=== PATIENT | male | born 1995 | race Caucasian/White ===

== ENCOUNTER 2018-11-05 14:43 | Emergency (ER) | payer OTHER ==
[2018-11-05] MEDS ORDERED: IBUPROFEN 600 MG TAB PO ONE (15:33)
--- NOTE | 2018-11-05 15:34 | EDPHY ---
General Time Seen by Provider: 11/05/18 15:32 Narrative: CLINICAL IMPRESSION: Left knee laceration ASSESSMENT/PLAN: Patient is a 23-year-old male with no significant medical history who presents to the emergency department with complaint of left patella pain and laceration sustained just prior to arrival. Patient is not toxic appearing, he is in no distress. Physical examination reveals 4 cm laceration transverse across anterior left knee. Left knee x-ray revealed no evidence of patellar fracture or other acute bony abnormality. There is no evidence of deep structure involvement; he was able to flex and extend without difficulty, do not suspect tendinous injury, no evidence of neurovascular compromise, foreign body, or bony involvement. The wound was not contaminated, tetanus status was already up- to-date. The wound was irrigated and then repaired as discussed in the procedure note, the patient tolerated this well. Wound care instructions discussed. Patient will return to the emergency department in 10-14 days for suture removal. Return precautions discussed- he will return for increased pain , signs of infection, fever, vomiting, if the wound opens or for any other concerns. Patient verbalizes understanding and he is in agreement with this plan. DIFFERENTIAL DIAGNOSIS: includes but not limited to laceration of tendon or vascular structure, underlying fracture, laceration with retained FB ED PROCEDURES: Laceration Repair Verbal consent obtained by patient. Risks discussed, including but not limited to infection, pain, retained foreign body, need for additional repair, poor cosmetic result, tendon damage, nerve damage, poor wound healing, vascular damage. Alternatives to repair discussed. [place] protocol used to establish correct patient, procedure, equipment, cryptologic support specialist, and site. Anesthesia obtained by local infiltration. Anesthetized with 1% lidocaine with epinephrine. Laceration location left anterior knee, length for cm, depth 1 cm, Repair type intermediate. Patient was prepped and draped in usual sterile fashion. Hemostasis achieved with direct pressure. Wound explored through full range of motion and entire depth of wound probed and visualized with gloved finger. No suspicion for nerve damage, tendon damage, underlying fracture, vascular damage, foreign body, or contamination. Area was cleansed with Shur-Clens and irrigated with sterile saline as per protocol. No foreign body or material removed. Repair method the deep layer was closed with 3 0 PDS, 3 interrupted sutures. The superficial layer was closed with 4.0 Prolene using tension suture. Five sutures placed. Well aligned, closely approximated. wound was dressed with antibiotic ointment, dressing. Patient tolerated well with no immediate complications. Wound care: Clean and dry x 24 hours, gently clean with soap and water, cover with topical antibiotic ointment/bandage. Suture/Staple removal: 10-14 Days CHIEF COMPLAINT: Laceration HPI: Patient is a 23-year-old male who presents to the emergency department complaining of left knee pain and laceration. Patient reports he was skiing, he went down a rail causing his ski to pop off, his ski subsequently hit him directly onto his left kneecap. He got up in continued skiing, did not experience much pain. Shortly thereafter he noticed a warm sensation in his ski pants, he took down his ski pants and realized that he had a laceration to his knee. Patient has been able to ambulate without difficulty. He was seen by kettle skimmer who wrapped the knee and sent him here for further evaluation. Patient does report pain of his knee cap, denies any other knee pain. He denies any numbness or tingling of the extremity. He denies any other injury or complaint. He is up-to-date on his tetanus status. PAST MEDICAL HISTORY: Denies Pertinent Past Surgical History: Denies Social History: Occasional marijuana, occasional alcohol, denies cigarette smoking REVIEW OF SYSTEMS: All other systems negative Constitutional: No fever, no chills Musculoskeletal: Left patella pain. No deformity, no joint pain Skin: Left knee laceration Neurological: No sensory loss or weakness. PHYSICAL EXAM: General Appearance: Alert, oriented, appropriate for age, cooperative, NAD, well hydrated, non-toxic appearing, VSS, no hypoxia. Neurological: Alert and oriented x 3 Skin: Warm and dry, see musculoskeletal. Upper Extremities: Intact distal pulses, Full range of motion intact, no tenderness, no ecchymosis or edema Lower Extremities: Right lower extremity is unremarkable. Intact distal pulses , No edema, No tenderness, No cyanosis, full range of motion intact, No calf tenderness bilaterally. Left lower extremity: Left thigh compartment is soft and nontender. Anterior mid left patella there is a 4 cm transverse laceration that is full thickness, I am unable to visualize the the patella however it did not violate the retinaculum. There was no evidence of tendinous injury. Patient able to flex and extend under resistance, this did cause discomfort however he had good strength. Patient is tender mid patella. Left lower extremity otherwise unremarkable. MEDICAL DECISION MAKING: Patient was seen independently. Secondary supervising physician at time of evaluation was Dr. Sterling, he did not evaluate this patient. Diagnosis: Left knee laceration. Summary: See assessment and plan for summary of ED visit Clinical lab tests: Not applicable. Independent visualization of images, tracing, or specimens: Not applicable. Decision to obtain medical records or history from someone other than the patient: Not applicable Review / Summarize previous medical records: Yes Disposition: Stable, discharge. - Diagnostics Imaging Results: Imaging Impressions Knee X-Ray 11/05/18 15:33 Impression: Negative left knee radiographs. - History Smoking Status: Current some day smoker - Objective Vital Signs: Initial Vital Signs Temperature (C) 37.2 C 11/05/18 14:47 Heart Rate 85 11/05/18 14:47 Respiratory Rate 16 11/05/18 14:47 Blood Pressure 117/79 11/05/18 14:47 O2 Sat (%) 96 11/05/18 14:47 O2 Delivery Mode Room Air Allergies/Adverse Reactions: amoxicillin Allergy (Verified 11/05/18 14:46) sulfamethoxazole [From Bactrim] Allergy (Verified 11/05/18 14:46) trimethoprim [From Bactrim] Allergy (Verified 11/05/18 14:46) Home Medications: Medication Instructions Recorded Immune Therapy Drops 11/05/18 Medications Given: Discontinued Medications Ibuprofen (Motrin) 600 mg PO EDNOW ONE Stop: 11/05/18 15:34 Last Admin: 11/05/18 15:41 Dose: 600 mg Departure - Departure Disposition: Home, Routine, Self-Care Clinical Impression: Laceration of knee Qualifiers: Encounter type: initial encounter Laterality: left Qualified Code(s): S81.012A - Laceration without foreign body, left knee, initial encounter Condition: Good Instructions: Laceration (ED) Additional Instructions: DISCHARGE INSTRUCTIONS FROM YOUR DOCTOR Thank you for visiting our emergency department today. Please keep in mind that discharge from the emergency department does not mean that there is nothing wrong - it simply means that we have not identified an emergency condition that requires further evaluation or treatment in the hospital. You should always plan to follow up with primary care for re-evaluation of your condition in the next 2-3 days. Keep wound clean and dry for 24 hours. Then remove dressing, clean at least twice daily or when soiled with soap and water, apply antibiotic ointment and dressing. Please limit the amount of flexion you are doing with her knee. Avoid lifting weights or climbing stairs or other things that will make you flexure knee significantly. Do not soak the wound while the stitches are in place. Anticipate suture removal in 10-14 days, you may return to the emergency department to have your sutures removed. For pain control: You may take Tylenol, I recommend 500-1000 mg every 6-8 hours as needed. Take with food and a full glass of water. Stop taking if this is upsetting her stomach. Do not exceed 4000 mg in a 24 hr period. You may also take ibuprofen, recommend 400 mg every 6 hr. Take with food and a full glass of water. Stop taking if this upsets her stomach. Do not exceed 2400 mg in a 24 hr period. Return for signs of wound infection ie: redness, swelling, drainage, foul odor, red streaks, fever, chills, pain, bleeding, if the stitches pop, if the wound opens or for any other new, worsening or worrisome symptoms. People present with illnesses and injuries in different ways, and it is always possible that we have missed something. You may always return for re-evaluation if symptoms worsen or if they are not improving or if you develop new/different symptoms. Again, thank you for choosing our emergency department. We hope that you feel better. Referrals: NONE *PRIMARY CARE P,. [Primary Care Provider] - As per Instructions Glory Beckman MD [Medical Doctor] - As per Instructions (Please establish care with a primary care provider if you do not already have 1. ) ED,PHYSICIAN ONDUTY [Medical Doctor] - As per Instructions (Follow-up in the emergency department in 10-14 days for suture removal.)
[2018-11-05 16:53] VITALS: BP 138/79
== END 2018-11-05 16:49 | disposition home or self-care (01) ==
PROC: 0HQLXZZ Repair Left Lower Leg Skin, External Approach (ICD-10-PCS; principal; 2018-11-05)
DX: S81.012A Laceration without foreign body, left knee, initial encounter (principal); V00.318A Other snowboard accident, initial encounter; Y93.23 Activity, snow (alpine) (downhill) skiing, snowboarding, sledding, tobogganing and snow tubing; Y92.828 Other wilderness area as the place of occurrence of the external cause